=== PATIENT | male | born 1995 | race African-American/Black ===

== ENCOUNTER 2018-12-17 15:02 | Emergency (ER) | payer MEDICAID ==
[~2018-12-17] VITALS: Ht 190.5 cm; Wt 90.0 kg
[2018-12-17] MEDS ORDERED: SODIUM CHLORIDE 0.9% 1,000 ML IV ONE (19:08)
[2018-12-17] MEDS ORDERED: MORPHINE SULFATE 4 MG/ML CPJ (NOT FOR IM USE) IV STA (19:08)
[2018-12-17] MEDS ORDERED: ONDANSETRON HCL 4MG/2ML INJ IV STA (19:08)
[2018-12-17 19:25] LABS: CLARITY URINE CLEAR (CLEAR); COLOR URINE YELLOW (YELLOW); KETONES URINE TRACE (NEGATIVE); LEUKOCYTE ESTERASE URINE 2+ (NEGATIVE); NITRITE URINE NEGATIVE (NEGATIVE); OCCULT BLOOD URINE NEGATIVE (NEGATIVE); PROTEIN URINE NEGATIVE (NEGATIVE); SPECIFIC GRAVITY URINE 1.031 (1.005-1.030)
[2018-12-17 19:47] LABS: BASOPHILS % 0.4 % (0.0-2.0); EOSINOPHILS % 1.6 % (0.0-5.0); HEMATOCRIT. 39.1 % (42.0-52.0); HEMOGLOBIN. 12.3 g/dL (14.0-18.0); LYMPHOCYTES % 13.5 % (20.0-50.0); MEAN CORPUSCULAR HEMOGLOBIN 25.8 pg (28.0-32.0); MEAN CORPUSCULAR VOLUME 82.2 fL (80.0-94.0); MEAN PLATELET VOLUME 7.2 fl (7.4-10.4); NEUTROPHILS % 74.5 % (40.0-76.0); PLATELET 371 x1000/uL (130-400); RED BLOOD CELL COUNT 4.75 mill/uL (4.7-6.1); RED CELL DISTRIBUTION WIDTH 13.1 % (11.6-14.6)
[2018-12-17 19:54] LABS: CHLORIDE 103 mEq/L (98-107)
[2018-12-17 19:56] LABS: PROTHROMBIN TIME 9.9 sec (9.1-11.1)
[2018-12-17] MEDS ORDERED: LEVOFLOXACIN 750MG PREMIX 150 ML IV ONE (22:30)
[2018-12-17] MEDS ORDERED: IOHEXOL-300 100 ML BOTTLE ONE (22:48)
[2018-12-17] MEDS ORDERED: CEFTRIAXONE SODIUM 250 MG/VIAL IM ONE (23:30)
[2018-12-17] MEDS ORDERED: AZITHROMYCIN 500 MG TABLET PO ONE (23:30)
[2018-12-18 01:29] VITALS: BP 111/66
== END 2018-12-18 01:32 | disposition home or self-care (01) ==
LOC: ER 15:02
DX: N45.3 Epididymo-orchitis (principal); N50.812 Left testicular pain; F12.10 Cannabis abuse, uncomplicated; J45.909 Unspecified asthma, uncomplicated; F84.0 Autistic disorder; E16.2 Hypoglycemia, unspecified; Q05.9 Spina bifida, unspecified; F17.290 Nicotine dependence, other tobacco product, uncomplicated; Z88.6 Allergy status to analgesic agent; Z91.010 Allergy to peanuts
CPT/HCPCS: 36415; 74177; 76870; 80053; 81003; 83690; 85025; 85610; 93976; 96365; 96366; 96372; 96375; 99284; 99406; J0696; J1956; J2270; J2405; J7030; Q9967

== ENCOUNTER 2019-12-05 00:24 | Emergency (ER) | payer MEDICAID ==
[~2019-12-05] VITALS: Ht 190.5 cm; Wt 86.0 kg
[2019-12-05] MEDS ORDERED: SULFAMETHOXAZOLE/TRIMETHOPRIM 800/160MG TABLET PO ONE (01:30)
[2019-12-05] MEDS ORDERED: TETANUS, DIPHTHERIA, PERTUSSIS VAC/PF 0.5ML (>7YR OLD) IM ONE (01:30)
[2019-12-05] MEDS ORDERED: ACETAMINOPHEN 500MG TABLET PO ONE (01:30)
[2019-12-05] MEDS ORDERED: CEPHALEXIN 250MG CAPSULE PO ONE (01:30)
[2019-12-05 02:45] VITALS: BP 131/69
== END 2019-12-05 07:59 | disposition home or self-care (01) ==
LOC: ER 00:24
DX: L03.115 Cellulitis of right lower limb (principal); M79.671 Pain in right foot; J45.909 Unspecified asthma, uncomplicated; F12.10 Cannabis abuse, uncomplicated; Q05.9 Spina bifida, unspecified; Z59.0 Homelessness; Z88.6 Allergy status to analgesic agent; Z91.010 Allergy to peanuts
CPT/HCPCS: 73630; 82962; 90471; 90715; 99284